=== PATIENT | female | born 1960 | race African-American/Black ===

== ENCOUNTER 2020-11-16 09:21 | Emergency (ER) | payer MEDICAID, SELFPAY ==
--- NOTE | ~2020-11-16 | XR_ITS ---
EXAMINATION: XR chest 1V portable DATE: 11/16/2020 10:33 INDICATION: COPD presenting with left flank pain and lower limb edema. TECHNIQUE: frontal view of the chest was obtained. COMPARISON: None FINDINGS: Cardiomegaly. Mild increased interstitial pattern in the bilateral mid to lower lung zones with perib ronchial cuffing consistent with mild pulmonary edema. Mild linear discoid atelectasis at the left josh ng base. Increased lucency at the upper lung zones consistent with given history of COPD. No pleural effusion or pneumothorax. Visualized bones and soft tissues are unremarkable. IMPRESSION: 1. Likely congestive heart failure with cardiomegaly and mild pulmonary edema. Reviewed, dictated and finalized at location B. S TUTOR
[2020-11-16 09:45] VITALS: BP 116/94; PULSE 101; RESP 22; O2SAT 99
[2020-11-16 09:50] VITALS: BP 116/94; PULSE 100; RESP 18; TEMP 36.2; O2SAT 100
[2020-11-16 09:58] VITALS: PULSE 99; O2SAT 100
[2020-11-16 10:01] VITALS: BP 103/92; PULSE 98; RESP 21; O2SAT 100
[2020-11-16 10:16] VITALS: BP 134/92; PULSE 102; RESP 23; O2SAT 98
[2020-11-16 10:32] VITALS: BP 118/104; PULSE 99; RESP 26
--- NOTE | 2020-11-16 10:43 | PC.NURSE ---
Attempt to draw blood per pulmonology technician unsuccessful, attempt to initiate IV per this RN unsuccessful. Pt complaining loudly that I'm not gonna get stuck and look like a junkie . Disha Irizarry RN, at bedside to attempt IV and blood draw.
--- NOTE | 2020-11-16 10:51 | PC.NURSE ---
Additional IV and blood draw unsuccessful per XIAO Gauthier. Beth Counts, Vascular optics test technician contacted and states is busy but will be here as soon as possible.
--- NOTE | 2020-11-16 11:10 | PC.NURSE ---
Pt's brother up to desk, states that the patient is wishing to leave and go to another hospital, where her physician is. HEIDE Dudley made aware and in to speak with patient.
--- NOTE | 2020-11-16 11:30 | PC.NURSE ---
Pt signs AMA form after being told about fluid around her heart and suspected renal problems, which is why blood was requested. Pt states I know, I'm going to the city to my doctor over there. I appreciate all you've done but I want to go where my doctor is . Pt aware of risks to include when signing AMA form.
--- NOTE | 2020-11-16 11:56 | ED.GENADULT ---
HPI - General Adult General Chief complaint: Shortness of Breath/Dyspnea Stated complaint: SHORT OF BREATH Time Seen by Provider: 11/16/20 09:37 Source: patient and family Mode of arrival: ambulatory Limitations: no limitations History of Present Illness HPI narrative: Patient presents with chief complaint of having trouble breathing but states that it is due to large trouble breathing her nose. Patient normally wears 3 L at rest and 4 L with exertion via nasal cannula due to COPD. Patient also wants to be evaluated for swelling in her bilateral feet over the past 4 days. Family states they have been elevating her feet on pillows, but she still has swelling. They deny injury or diagnosis of CHF or renal dysfunction. Patient states that she does not feel short of breath at this time now that she is back on her baseline 3 L of oxygen. Patient came to the emergency department without being on her 3 L of oxygen when she is supposed to be on at all times of rest because she does not have a portable oxygen machine. Patient denies any fever, chills, nausea, vomiting, diarrhea, chest pain, cough. Patient states that her only chronic medical condition is COPD and she has been taking her inhalers as normal. Patient denies any shortness of breath at this time. Related Data Home Medications Medication Instructions Recorded Confirmed ProAir HFA 11/16/20 Spiriva with HandiHaler 11/16/20 mometasone-formoterol [Dulera] 2 puff INHALATION Q12H 11/16/20 11/16/20 Allergies Allergy/AdvReac Type Severity Reaction Status Date / Time Penicillins Allergy Rash Verified 11/16/20 09:56 Review of Systems Review of Systems: Narrative: CONSTITUTIONAL: Denies fever, chills, or sweats. EYES: Denies visual changes, redness, or discharge. ENT: Denies rhinorrhea, congestion, sore throat, or otalgia. CARDIOVASCULAR: Denies chest pain, palpitations, or edema. RESPIRATORY: Denies cough or dyspnea. GASTROINTESTINAL: Denies abdominal pain, nausea, vomiting, or diarrhea. GENITOURINARY: Denies dysuria or hematuria. SKIN: Denies rash or itching. MUSCULOSKELETAL: Reports bilateral feet swelling denies back pain, joint pain, or myalgia. NEUROLOGIC: Denies headache, numbness, dizziness, or weakness. PSYCHIATRIC: Denies anxiety or depression. Exam Narrative: Exam Narrative: GENERAL: Patient appears thin and frail, but in no acute distress. HEAD: Normocephalic, atraumatic. EYES: PERRLA and EOMI. NECK: Supple. No adenopathy or masses. CHEST: Clear to auscultation. No respiratory distress. No wheezes rales or rhonchi HEART: Regular rate and rhythm. EXTREMITIES: Normal range of motion. Is swelling to bilateral feet but not ankles. There is no erythema or ecchymosis. There is not any excess warmth. No wounds or drainage. Patient reports feet are tender to palpation. SKIN: Warm, dry, no rash. NEURO: No focal deficits. Alert and oriented x3. PSYCH: Normal mood and affect. Course Vital Signs Vital signs: Vital Signs Pulse Rate 101 H 11/16/20 09:45 Respiratory Rate 22 H 11/16/20 09:45 Blood Pressure 116/94 H 11/16/20 09:45 Pulse Oximetry 99 11/16/20 09:45 Temperature 97.1 F L 11/16/20 09:50 Pulse Rate 99 11/16/20 10:32 Respiratory Rate 26 H 11/16/20 10:32 Blood Pressure 118/104 H 11/16/20 10:32 Pulse Oximetry 98 11/16/20 10:16 Medical Decision Making MDM Narrative Medical decision making narrative: Patient states that she wants to leave immediately without any of her blood work results back. I have expressed to the patient that her chest x-ray showed that her heart looked enlarged and she was being worked up for CHF, renal failure as well as other possible causes. I have informed her that if they present she may need further evaluation and treatment or possible admission. Patient states she does not want to wait she wants to be discharged home immediately. Patient is aware of possibility of worsening condition or . Patie
--- NOTE | 2020-11-16 13:35 | ECG_ITS ---
Measurements Intervals [place] Rate: 102 P: -69 [place]: 136 QRS: 100 QRSD: 112 T: -60 QT: 381 QTc: 497 Interpretive Statements ECTOPIC ATRIAL TACHYCARDIA RIGHT AXIS DEVIATION INCOMPLETE RIGHT BUNDLE BRANCH BLOCK ST-T WAVE ABNORMALITY IN INFERIOR LEADS- CONSIDER ISCHEMIA BASELINE WANDER- I, II, AVR, AVF, V6 ABNORMAL ECG Electronically Signed On 11-16-2020 13:58:52 [employer] by Polo Craig D.O.
== END 2020-11-16 11:45 | disposition left against medical advice (07) ==
PROVIDERS: Emergency Provider Emergency Medicine
DX: J44.9 Chronic obstructive pulmonary disease, unspecified (principal); Z99.81 Dependence on supplemental oxygen; I45.10 Unspecified right bundle-branch block; R94.31 Abnormal electrocardiogram [ECG] [EKG]; I51.7 Cardiomegaly; J81.1 Chronic pulmonary edema
CPT/HCPCS: 71045; 93005; 99283